=== PATIENT | female | born 1955 | race Hispanic/Latino ===

== ENCOUNTER 2019-11-09 22:13 | Emergency (ER) | payer OTHER ==
[2019-11-09 22:42] LABS: APPEARANCE,URINE CLOUDY (CLEAR); BILIRUBIN,URINE MODERATE (NEGATIVE); COLOR,URINE YELLOW (YELLOW); GLUCOSE, URINE (UA) NEGATIVE (NEGATIVE); KETONES,URINE 5 mg/dL (NEGATIVE); LEUKOCYTE ESTERASE ,URINE TRACE (NEGATIVE); NITRATE,URINE POSITIVE (NEGATIVE); OCCULT BLOOD,URINE MODERATE (NEGATIVE); PH,URINE 5.5 (5.0-8.0); PROTEIN,URINE 30 mg/dL (NEGATIVE); UROBILINOGEN,URINE 0.2 mg/dL (0.2-1.0)
[2019-11-09 22:57] LABS: BASOPHILS % (AUTO) 0.2 % (0.0-5.0); EOSINOPHILS % (AUTO) 0.1 % (0.0-8.0); HEMATOCRIT 38.2 % (36-48); LYMPHOCYTES % (AUTO) 5.5 % (21.0-51.0); MEAN CORPUSCULAR HEMOGLOBIN 30.5 pg (27.0-33.0); MEAN CORPUSCULAR VOLUME 89.7 fL (79-99); MONOCYTES % (AUTO) 7.2 % (3.0-13.0); NEUTROPHILS % (AUTO) 86.8 % (40.0-77.0); PLATELET COUNT (AUTO) 168 K/uL (130-400); RED BLOOD CELL COUNT(AUTO) 4.26 MIL/uL (4.00-5.50); RED CELL DISTRIBUTION WIDTH 13.4 % (11.0-15.5); WHITE BLOOD COUNT (AUTO) 9.5 K/uL (4.8-10.8)
[2019-11-09 23:08] LABS: POTASSIUM 3.6 mmol/L (3.5-5.1)
[2019-11-09 23:09] LABS: BACTERIA,URINE Moderate /HPF (None Seen); MUCUS,URINE Moderate LPF (None Seen)
[2019-11-09 23:10] LABS: AMORPHOUS SEDIMENT,UR Many /LPF (None Seen)
[2019-11-09 23:13] LABS: ALBUMIN 4.3 g/dL (3.5-5.0); BILIRUBIN,TOTAL 0.7 mg/dL (0.2-1.0); TOTAL PROTEIN, SERUM 8.4 g/dL (6.0-8.3)
[2019-11-09] MEDS ORDERED: CEFTRIAXONE SODIUM 1 GM ONE (23:31)
[2019-11-09] MEDS ORDERED: SODIUM CHLORIDE 0.9% 1000ML 1,000 ML IV ONE (23:32)
[2019-11-10] MEDS ORDERED: ONDANSETRON HCL 4 MG/2 ML VIAL ONE (01:07)
[2019-11-10] MEDS ORDERED: ACETAMINOPHEN 325 MG TAB ONE (01:07)
== END 2019-11-10 01:53 | disposition home or self-care (01) ==
LOC: EDH 22:13
DX: K52.9 Noninfective gastroenteritis and colitis, unspecified (principal); N39.0 Urinary tract infection, site not specified; I10 Essential (primary) hypertension; E78.1 Pure hyperglyceridemia
CPT/HCPCS: 36415; 74176; 80053; 81001; 82550; 84484; 85025; 93005; 96361; 96374; 96375; 99285; J0696; J2405; J7030

== ENCOUNTER → 2020-02-02 | Outpatient (CLI) | payer MEDICARE | END | disposition home or self-care (01) | LOC: SHCH 10:51 | PROVIDERS: ATTEND Internal Medicine Cardiovascular Disease | DX: I51.7 Cardiomegaly (principal); R07.9 Chest pain, unspecified; I20.9 Angina pectoris, unspecified; R94.39 Abnormal result of other cardiovascular function study | CPT/HCPCS: 93306; 93356 ==

== ENCOUNTER → 2020-02-21 | Outpatient (CLI) | payer MEDICARE ==
--- NOTE | 2020-02-14 12:02 | NUR ---
PT WAS A NO SHOW FOR THIS DOS
[~2020-02-21] VITALS: Ht 154.9 cm; Wt 68.5 kg
[~2020-02-21] MED LIST: REGADENOSON 0.4 MG/5 ML PF SYG IVP SCH
== END | disposition home or self-care (01) ==
LOC: SHCH 08:44
PROVIDERS: ATTEND Internal Medicine Cardiovascular Disease
DX: R07.9 Chest pain, unspecified (principal)
CPT/HCPCS: 78452; 93017; 96374; A9500 ×2; J2785

== ENCOUNTER → 2022-10-23 | Outpatient (CLI) | payer OTHER | END | disposition home or self-care (01) | LOC: SHCH 12:30 | PROVIDERS: ATTEND Internal Medicine Cardiovascular Disease | DX: I11.9 Hypertensive heart disease without heart failure (principal); I07.1 Rheumatic tricuspid insufficiency; E78.5 Hyperlipidemia, unspecified | CPT/HCPCS: 93306 ==

== ENCOUNTER → 2024-06-23 | Outpatient (CLI) | payer OTHER | END | disposition home or self-care (01) | LOC: SHCH 13:46 | PROVIDERS: ATTEND Internal Medicine Cardiovascular Disease | DX: R55 Syncope and collapse (principal) | CPT/HCPCS: 93306 ==

== ENCOUNTER → 2024-07-04 | Outpatient (CLI) | payer OTHER ==
--- NOTE | 2024-07-06 07:12 | HMCSR ---
APPROVED REPORT Laterality: Bilateral Doppler Spectral Velocity Analysis PSV / EDVPSV / EDV ECA (R) 53 / cm/sECA (L) 55 / cm/s dICA (R) 72 / 33 cm/sdICA (L) 77 / 30 cm/s Samara (R) 40 / 14 cm/smICA (L) 77 / 31 cm/s pICA (R) 42 / 18 cm/spICA (L) 50 / 18 cm/s dCCA (R) 37 / 16 cm/sdCCA (L) 54 / 19 cm/s mCCA (R) 51 / 14 cm/smCCA (L) 49 / 19 cm/s pCCA (R) 90 / 21 cm/spCCA (L) 70 / 16 cm/s Vert (R) 59 / cm/sVert (L) 39 / cm/s Subl. (R) 139 / cm/sSubl. (L) 129 / cm/s ICA/CCA 0.80ICA/CCA 1.10 Technologist Impression Minimal plaque noted in the bilateral carotid arteries without hemodynamic significance. The bilateral vertebral arteries reflect antegrade flow. Conclusion Minimal plaque noted in the bilateral carotids, without hemodynamic significance. Bilateral vertebral arteries appear antegrade. Conclusion Minimal plaque noted in the bilateral carotids, without hemodynamic significance. Bilateral vertebral arteries appear antegrade.
== END | disposition home or self-care (01) ==
LOC: SHCH 08:22
PROVIDERS: ATTEND Internal Medicine Cardiovascular Disease
DX: R55 Syncope and collapse (principal)
CPT/HCPCS: 93880